=== PATIENT | female | born 1940 | race Caucasian/White ===

== ENCOUNTER 2021-05-31 04:50 | Emergency (ER) | payer OTHER ==
[~2021-05-31] VITALS: Ht 162.6 cm; Wt 48.6 kg
[2021-05-31 04:55] VITALS: Ht 162.6 cm; Wt 48.6 kg
[2021-05-31] MEDS ORDERED: PROVENTIL/2.5 MG/3 M INH (05:02)
[2021-05-31] MEDS ORDERED: CALCITONIN-SAL3.7 ML NASAL (05:02)
[2021-05-31] MEDS ORDERED: FUROSEMIDE20 MG PO (05:03)
[2021-05-31] MEDS ORDERED: HYDROCODON-ACE1 EAC7 PO (05:04)
[2021-05-31] MEDS ORDERED: SYNTHROID125 MCG PO (05:04)
[2021-05-31] MEDS ORDERED: LIDODERM 5 %1 PATCH TRANSDERM (05:05)
[2021-05-31] MEDS ORDERED: ATIVAN1 MG PO (05:05)
[2021-05-31] MEDS ORDERED: PROTONIX40 MG PO (05:06)
[2021-05-31] MEDS ORDERED: TOPROL XL25 MG PO (05:06)
[2021-05-31] MEDS ORDERED: HEALTHYLAX17 GM PO (05:07)
[2021-05-31] MEDS ORDERED: DILANTIN100 MG PO (05:07)
[2021-05-31] MEDS ORDERED: PHENERGAN25 M1 PO (05:08)
[2021-05-31] MEDS ORDERED: K-DUR20 MEQ PO (05:08)
[2021-05-31] MEDS ORDERED: CARAFATE1 G PO (05:09)
[2021-05-31] MEDS ORDERED: ZANAFLEX2 M1 PO (05:09)
[2021-05-31 06:17] VITALS: BP 167/89
== END 2021-05-31 07:43 | disposition home or self-care (01) ==
LOC: D.ER 04:50
DX: G89.4 Chronic pain syndrome (principal); R10.9 Unspecified abdominal pain; M54.5 Low back pain; S32.010A Wedge compression fracture of first lumbar vertebra, initial encounter for closed fracture; W19.XXXA Unspecified fall, initial encounter; I11.0 Hypertensive heart disease with heart failure; I50.9 Heart failure, unspecified; J44.9 Chronic obstructive pulmonary disease, unspecified; F03.90 Unspecified dementia, unspecified severity, without behavioral disturbance, psychotic disturbance, mood disturbance, and anxiety; M54.16 Radiculopathy, lumbar region